=== PATIENT | female | born 1980 | race Caucasian/White ===

== ENCOUNTER 2018-04-25 02:39 | Inpatient (IN) | payer OTHER ==
[~2018-04-25 02:39] MED LIST: Buffered Lidocaine 0.9% SYRIN* 5 ML/SYR SYRINGE INTRADERM ONE
[2018-04-25] MEDS ORDERED: ceFOXitin 2 GM IVPREMIX* 2 GM/50 ML BAG IVPB ONE (05:57)
[2018-04-25] MEDS ORDERED: Scopolamine 1.5 mg* PATCH TRANSDERM ONE ×2 (06:00)
[2018-04-25] MEDS ORDERED: Metoclopramide TAB* 10 MG PO ONE ×2 (06:00)
[2018-04-25] MEDS ORDERED: Sodium Citrate/Citric Acid* 15 ML UDC PO ONE ×2 (06:00)
[2018-04-25] MEDS ORDERED: ceFOXitin 2 GM IVPREMIX* 2 GM/50 ML BAG ONE (06:03)
[2018-04-25] MEDS ORDERED: Bupivacaine-MPF SPINAL* 7.5 MG/ML - 2ML AMP ONE (06:15)
[2018-04-25] MEDS ORDERED: Morphine PF AMP (0.5MG/ML)* 5 MG/10 ML AMP ONE (06:15)
[2018-04-25] MEDS ORDERED: OXYTOCIN* 10 UNITS/ML 1 ML VIAL ONE (07:29)
[2018-04-25] MEDS ORDERED: oxyCODONE/Acetamin 5/325 MG* TAB PO PRN ×3 (07:47→07:56)
[2018-04-25] MEDS ORDERED: Witch Hazel PAD* JAR TOPICAL PRN (07:47)
[2018-04-25] MEDS ORDERED: Dibucaine 1% 28.35 GM TUBE PR PRN (07:47)
[2018-04-25] MEDS ORDERED: Ibuprofen TAB* 600 MG PO PRN (07:47)
[2018-04-25] MEDS ORDERED: Glycerin ADULT SUPP PR PRN (07:47)
[2018-04-25] MEDS ORDERED: Ondansetron INJ* 2 MG/ML VIAL IV PRN (07:56)
[2018-04-25] MEDS ORDERED: Naloxone* 0.4 MG/ML 1 ML VIAL IV PRN ×2 (07:56)
[2018-04-25] MEDS ORDERED: Oxytocin in LR* 20 UNITS/1,000 ML BAG IVPB SCH (08:00)
[2018-04-25] MEDS ORDERED: Ibuprofen TAB* 400 MG PO SCH (08:00)
[2018-04-25] MEDS ORDERED: Oxytocin in LR* 20 UNITS/1,000 ML BAG IVPB ONE (11:34)
[2018-04-25] MEDS: Docusate CAP* 100 MG PO SCH ×3 (13:59→19:45)
--- NOTE | 2018-04-25 15:06 | PTEDU ---
Patient Name: CHETNA ESTRADA CHETNA ESTRADA selected video: Never Ever Shake a Baby to view on 04/25/2018 at 3:05:13 PM [id number]
--- NOTE | 2018-04-25 15:15 | PTEDU ---
Patient Name: CHETNA ESTRADA CHETNA ESTRADA selected video: BBOB: Nurturing Your Gorgeous &Growing Baby by to view on 0 04/25/2018 at 3:13:57 PM [id number]
[2018-04-25] MEDS: Ibuprofen TAB* 400 MG PO SCH (16:09)
[2018-04-25] MEDS: Simethicone TAB* 80 MG TAB.CHEW PO SCH (19:46)
[2018-04-26] MEDS ORDERED: oxyCODONE/Acetamin 5/325 MG* TAB PO PRN ×2 (00:30)
[2018-04-26] MEDS: Ibuprofen TAB* 400 MG PO SCH (00:37)
--- NOTE | 2018-04-26 05:12 | OP ---
DATE OF OPERATION: 04/25/18 - ROOM #104 DATE OF : 82 SURGEON: Georgia Kirkland MD THERMODYNAMICS PROFESSOR: Carmen Jo CNM PRE-OP DIAGNOSIS: 30-1/7 weeks, bernardo breech, left sacrum anterior, rupture of membranes, in labor. POST-OP DIAGNOSIS: 30-1/7 weeks, bernardo breech, left sacrum anterior, rupture of membranes, in labor, delivered. OPERATIVE PROCEDURE: Primary low transverse section. ESTIMATED BLOOD LOSS: 600 cc. FLUIDS: 900 cc of crystalloid. URINE OUTPUT: 500 cc of clear yellow urine. FINDINGS: Revealed a bernardo breech left sacrum anterior female with Apgars 9 at one minute and 9 at five minutes. No nuchal cord. No meconium. Normal-appearing tubes and ovaries bilaterally. Normally palpated uterine cavity. No evidence of retained placental or membranes in the uterine cavity. COMPLICATIONS: None apparent. DISPOSITION: Stable to recovery room. DESCRIPTION OF PROCEDURE: The patient was placed in dorsal lithotomy position. The abdomen was prepped and draped in a sterile standard fashion. The patient was identified with universal protocol and incision site was tested with Allis. With good anesthesia effect, an incision was made 2 fingerbreadths above the pubic symphysis. With the scalpel, this was carried down through to the fascia. Fascia was scored in the midline and extended laterally and superiorly with Mata scissors. The peritoneum was then entered bluntly. The bladder blade was inserted. Lower uterine segment was identified and tented up with Allis. An incision was made in the lower uterine segment with scalpel. This was extended using bandage scissors in a lateral superior fashion. First attempt at delivery of the buttocks failed, as I was unable to get the hands into deliver the breech. The skin incision was then extended on either side approximately 2 cm. Second attempt at delivery allowed both hands to be able to deliver the breech presentation. Right shoulder, then left shoulder delivered, head delivered spontaneous. Cord was allowed to pump for 60 seconds , then clamped, cut, and was handed off to awaiting flight technician. Baby was vigorous. Appropriate cord blood was obtained. Placenta was then manually extracted, noted to be intact 3-vessel cord. Uterus exteriorized. Uterine cavity was explored, noted to have normal contour with no masses or excrescences or septum and no evidence of retained placental tissue or membranes. The uterine incision itself was reapproximated using 0 Vicryl x2 first layer and second layer running imbricated due to the small extension on the right edge of the incision, which was imbricated and was hemostatic. The uterus was returned intraabdominally. Colic gutters were lavaged. Hemostasis assured. Peritoneum was then closed using 2-0 Vicryl in a running fashion. Subfascial area was visualized and noted to be hemostasis. Fascia was reapproximated using 0 Vicryl x2 in a running fashion. Subcu was lavaged, hemostasis assured, and the skin was reapproximated using 4-0 Monocryl in a subcuticular fashion. Mastisol and Steris were applied. All sponge, instrument , and blade counts were correct throughout the case. The patient tolerated the procedure well and went to the recovery room in stable condition. [id number]/[facility] #: [id number] MTDD
[2018-04-26] MEDS: Ibuprofen TAB* 600 MG PO PRN ×3 (06:31→18:36)
[2018-04-26 07:18] LABS: ABS Basophils 0.1 10^3/ul (0-0.2); ABS Eosinophils 0.2 10^3/ul (0-0.6); ABS Lymphocytes 1.1 10^3/ul (1.0-4.8); ABS Monocytes 0.9 10^3/ul (0-0.8); ABS Neutrophils 11.5 10^3/ul (1.5-7.7); ABS Nucleated RBC 0 10^3/ul; Eosinophil % 1.4 % (0-6); Hematocrit 35 % (35-47); Lymphocyte % 8.2 % (25-47); Mean Corpuscular HGB Conc 35 g/dl (31-36); Mean Corpuscular Hemoglobin 32 pg (27-31); Mean Corpuscular Volume 92 fL (80-97); Mean Platelet Volume 6.9 um3 (7.4-10.4); Nucleated Red Blood Cells % 0.1; Platelet Count 237 10^3/ul (150-450); Red Blood Count 3.77 10^6/ul (4.00-5.40); Red Cell Distribution Width 14 % (10.5-15); White Blood Count 13.7 10^3/ul (3.5-10.8)
[2018-04-26] MEDS ORDERED: Ferrous Gluconate TAB* 324 MG TAB PO SCH (09:00)
[2018-04-26] MEDS: Docusate CAP* 100 MG PO SCH ×3 (09:02→22:58)
[2018-04-26] MEDS: Simethicone TAB* 80 MG TAB.CHEW PO SCH ×5 (09:02→22:58)
[2018-04-27] MEDS: Ibuprofen TAB* 600 MG PO PRN ×3 (02:22→16:42)
[2018-04-27] MEDS: Simethicone TAB* 80 MG TAB.CHEW PO SCH ×4 (08:13→21:11)
[2018-04-27] MEDS: Docusate CAP* 100 MG PO SCH ×3 (08:13→21:11)
[2018-04-27] MEDS: Acetaminophen TAB* 325 MG PO PRN ×2 (13:01→23:17)
--- NOTE | 2018-04-27 15:20 | PTEDU ---
Patient Name: CHETNA ESTRADA CHETNA ESTRADA selected video: BBOB: Bonding Through Massage to view on 04/27/2018 at 3:19:05 PM from [id number]
[2018-04-28] MEDS ORDERED: Scopolamine PATCH Remove* 1 NOTE MISC PATCH OFF ONE ×2 (06:00)
[2018-04-28] MEDS: Ibuprofen TAB* 600 MG PO PRN ×2 (06:01→12:00)
[2018-04-28 07:42] VITALS: BP 120/57
[2018-04-28] MEDS: Docusate CAP* 100 MG PO SCH (08:51)
[2018-04-28] MEDS: Simethicone TAB* 80 MG TAB.CHEW PO SCH ×3 (08:51→12:00)
== END 2018-04-28 13:16 | disposition home or self-care (01) | DRG 766 ==
LOC: MCHOB 02:39 → UNDOADMIN 02:39 → MCHOB 02:50
PROVIDERS: ADMIT Obstetrics & Gynecology; ATTEND Obstetrics & Gynecology
PROC: 4A1HX4Z Monitoring of Products of Conception, Cardiac Electrical Activity, External Approach (ICD-10-PCS; 2018-04-25)
PROC: 10D00Z1 Extraction of Products of Conception, Low, Open Approach (ICD-10-PCS; principal; 2018-04-25 06:25)
DX: O32.1XX0 Maternal care for breech presentation, not applicable or unspecified (principal); Z37.0 Single live birth; Z87.891 Personal history of nicotine dependence; Z3A.39 39 weeks gestation of pregnancy; O77.0 Labor and delivery complicated by meconium in amniotic fluid
CPT/HCPCS: 36415; 85025; A9270-GY; J0694; J2405; J2590

== ENCOUNTER 2018-08-16 08:34 | Emergency (ER) | payer OTHER ==
[2018-08-16 08:44] VITALS: BP 107/69
--- NOTE | 2018-08-16 08:57 | UC ---
Back Pain HPI - HPI Summary HPI Summary: Pt c/o sudden on set of generalized low back pain. Pt denies injury or prior hx of back pain. Pt has toddler at home that she picks up frequently. Pt reports that pain is relieved with OTC "Midol" Denies bowel or bladder incontinence. - History of Current Complaint Chief Complaint: UCBackPain Stated Complaint: LOWER BACK PAIN Time Seen by Provider: 08/16/18 08:45 Hx Obtained From: Patient Hx Last Menstrual Period: 04/2018 ?: No Onset/Duration: Sudden Onset, Lasting Days, Still Present Timing: Constant Severity Initially: Mild Severity Currently: Mild Pain Intensity: 6 Back Pain: Is Diffuse - low back Character: Dull, Aching, Stiffness Aggravating Factor(s): Movement Alleviating Factor(s): OTC Meds Associated Signs And Symptoms: Positive: Negative - Risk Factors AAA Risk Factors: Negative TAD Risk Factors: Negative Cauda Equina Risk Factors: Negative Epidural Abscess Risk Factors: Negative - Allergies/Home Medications Allergies/Adverse Reactions: Allergies Allergy/AdvReac Type Severity Reaction Status Date / Time No Known Allergies Allergy Verified 08/16/18 08:43 PMH/Surg Hx/FS Hx/Imm Hx Previously Healthy: Yes - Surgical History Surgical History: Yes Surgery Procedure, Year, and Place: c/sec - Family History Known Family History: Positive: Cardiac Disease - Social History Occupation: Employed Full-time, Works From/At Home Lives: With Family Alcohol Use: None Substance Use Type: None Smoking Status (MU): Former Smoker Have You Smoked in the Last Year: No - Immunization History Most Recent Influenza Vaccination: current Most Recent Pneumonia Vaccination: none Vaccination Up to Date: Yes Review of Systems Constitutional: Negative Skin: Negative Eyes: Negative ENT: Negative Respiratory: Negative Cardiovascular: Negative Gastrointestinal: Negative Genitourinary: Negative Motor: Negative Neurovascular: Negative Musculoskeletal: Myalgia Neurological: Negative Psychological: Negative Is Patient Immunocompromised?: No All Other Systems Reviewed And Are Negative: Yes Physical Exam Triage Information Reviewed: Yes Appearance: Well-Appearing Vital Signs: Initial Vital Signs Temp 97.7 F 08/16/18 08:39 Pulse 72 08/16/18 08:39 Resp 16 08/16/18 08:39 BP 107/69 08/16/18 08:39 Pulse Ox 100 08/16/18 08:39 Vital Signs Reviewed: Yes Eye Exam: Normal ENT Exam: Normal ENT: Positive: Hearing grossly normal Dental Exam: Normal Neck exam: Normal Respiratory Exam: Normal Cardiovascular Exam: Normal Musculoskeletal Exam: Normal Musculoskeletal: Positive: Strength Intact, ROM Intact Neurological Exam: Normal Psychological Exam: Normal Skin Exam: Normal Back Pain Course/Dx - Differential Dx/Diagnosis Differential Diagnosis/HQI/PQRI: Strain, Sprain Provider Diagnoses: low back pain Discharge - Sign-Out/Discharge Documenting (check all that apply): Patient Departure All imaging exams completed and their final reports reviewed: No Studies - Discharge Plan Condition: Stable Disposition: HOME Patient Education Materials: Acute Low Back Pain (ED), Lower Back Exercises (ED ) Referrals: [facility] [Outside] - If Needed No Primary Care Phys,NOPCP [Primary Care Provider] - Additional Instructions: Please follow up with your PCP or if you do not have a PCP please establish care with one as soon as possible. - Billing Disposition and Condition Condition: STABLE Disposition: Home
== END 2018-08-16 09:18 | disposition home or self-care (01) ==
LOC: UCEAST 08:34
DX: M54.5 Low back pain (principal); Z87.891 Personal history of nicotine dependence
CPT/HCPCS: 81003; 99211; G0463